=== PATIENT | female | born 1995 | race African-American/Black ===

== ENCOUNTER 2018-10-19 11:33 | Emergency (ER) | payer BC ==
[~2018-10-19] VITALS: Ht 157.5 cm; Wt 61.2 kg
[2018-10-19] MEDS ORDERED: KETOROLAC TROME10 MG PO (12:39)
== END 2018-10-19 12:56 | disposition home or self-care (01) ==
LOC: ER 11:33
DX: M94.0 Chondrocostal junction syndrome [Tietze] (principal); R07.89 Other chest pain